=== PATIENT | female | born 1980 | race African-American/Black ===

== ENCOUNTER 2016-08-08 03:39 | Emergency (ER) | payer OTHER ==
--- NOTE | ~2016-08-08 | CT4 ---
[facility] A Service [facility] RADIOLOGY TEXT RESULTS PATIENT: PEREZ NUGENT LOCATION: [facility] : 82 UNIT #: [id number] AGE: [address]: Sonal Resendiz MD SEX: F ORDER DR: [id number] [address] [address] [id number] MR#: [id number] Acc #: [id number] NAME: PEREZ NUGENT : 1980 SEX: F STUDY DATE/TIME: 08/08/2016 6:14 UNIT: [facility] ROOM: STUDY DESCRIPTION: CT Abd and Pelv Wo Cont Attending Physician: Sonal Resendiz M.D. Ordering Physician: Kalia Dooley M.D. Primary Care Physician: Primary Care Physician No MEDICAL IMAGING REPORT This report is preliminary unless electronic signature is present EXAM CT abdomen and pelvis without contrast INDICATION Low abdomen pain since yesterday morning. COMPARISON None. TECHNIQUE Axial 3 mm images were obtained through the abdomen and pelvis without IV or oral contrast. This CT examination was performed with one or more of the following radiation dose reduction techniques: automatic exposure control, adjustment of mA and/or kV according to patient size, and iterative reconstruction. FINDINGS The lung bases are clear. The gallbladder is contracted but otherwise normal. The liver, spleen, pancreas, adrenal glands and kidneys are normal in appearance. There is no hydronephrosis. The aorta is normal in size. The bowel including the appendix appears normal. The uterus, adnexal regions and bladder are normal. The bones are unremarkable. The vagina appears normal without foreign body. IMPRESSION Normal unenhanced CT scan of the abdomen and pelvis. Dictated by... [facility] A Service [facility] RADIOLOGY TEXT RESULTS PATIENT: PEREZ NUGENT LOCATION: [facility] : 82 UNIT #: [id number] AGE: [address]: Sonal Resendiz MD SEX: F ORDER DR: Dexter Lofton M.D. THIS IS AN ELECTRONICALLY VERIFIED REPORT Dexter Lofton M.D. at 08/08/2016 2:19 PM CRYSTAL/shauna TD: 08/08/2016 11:08 JOB #: [id number] MEDICAL IMAGING REPORT Page 1 of 1 COPY
[~2016-08-08 03:39] MED LIST: BACTRIM DS TABL1 TA1 PO; METFORMIN PO; TYLENOL #3 PO
[2016-08-08 05:11] LABS: URINE SOURCE CLEAN CATCH
[2016-08-08 05:24] LABS: URINE APPEARANCE CLEAR; URINE BILIRUBIN NEG (NEG); URINE BLOOD TRACE (NEG); URINE COLOR YELLOW; URINE GLUCOSE NEG (NEG); URINE KETONE NEG (NEG); URINE LEUKOCYTE ESTERASE 1+ (NEG); URINE NITRATE NEG (NEG); URINE PH 6.5 (5-8); URINE PROTEIN NEG (NEG); URINE SPECIFIC GRAVITY 1.019 (1.003-1.035); URINE UROBILINOGEN 0.2 MG/DL (NEG)
[2016-08-08 05:27] LABS: CULTURE INDICATED? YES; URBCS1 AUWI 0-2 /[HPF] (0-2); URINE BACTERIA AUWI NEG (NEGATIVE)
[2016-08-08 05:39] LABS: URINE CRYSTALS CALCIUM OXALATE /[HPF]; URINE SQUAMOUS EPITHELIAL CELL OCCAS /[HPF]
[2016-08-08 05:40] LABS: URINE MUCUS PRESENT
[2016-08-10 02:18] LABS: CHLAMYDIA TRACH Not Detected (Not Detected); N GONOR Not Detected (Not Detected)
== END 2016-08-08 07:32 | disposition home or self-care (01) ==
LOC: CED 03:39
PROVIDERS: Emergency Medicine
DX: A59.01 Trichomonal vulvovaginitis (principal); A64 Unspecified sexually transmitted disease
CPT/HCPCS: 74176; 81003; 84703; 87086; 87491; 87591; 87808; 87905; 96372; 99284; J1885

== ENCOUNTER 2016-09-02 23:14 | Emergency (ER) | payer OTHER ==
--- NOTE | ~2016-09-02 | CT4 ---
[facility] A Service [facility] RADIOLOGY TEXT RESULTS PATIENT: PEREZ NUGENT LOCATION: SED : 82 UNIT #: [id number] AGE: [address]: Sebas Rondon MD SEX: F ORDER DR: [id number] [address] [address] [id number] E MR#: [id number] Acc #: [id number] NAME: PEREZ NUGENT : 1980 SEX: F STUDY DATE/TIME: 09/03/2016 2:19 UNIT: SED ROOM: STUDY DESCRIPTION: CT Abd and Pelv Wo Cont Attending Physician: Sebas Rondon M.D. Ordering Physician: Yue Oneill Primary Care Physician: Primary Care Physician No MEDICAL IMAGING REPORT This report is preliminary unless electronic signature is present. EXAM CT abdomen and pelvis without contrast INDICATION Abdominal pain for 3 days. COMPARISON 08/08/2016. TECHNIQUE Axial 5 mm images were obtained through the abdomen and pelvis without IV or oral contrast. Sagittal and coronal reconstructions were generated. This CT examination was performed with one or more of the following radiation dose reduction techniques: automatic exposure control, adjustment of mA and/or kV according to patient size, and iterative reconstruction. FINDINGS Lung bases are clear. The liver, gallbladder, spleen, pancreas, and adrenal glands are normal. The left kidney is normal. There is mild perinephric edema around the right kidney. No stones are identified. There is no hydronephrosis. The bowel including the appendix is normal. The uterus, adnexal regions and bladder are normal. Bones are unremarkable. IMPRESSION There is mild perinephric stranding around the right kidney. There are no urinary stones or obstruction identified. The findings may represent pyelonephritis and correlation with urinalysis is recommended. Otherwise, the study is normal. [facility] A Service [facility] RADIOLOGY TEXT RESULTS PATIENT: PEREZ NUGENT LOCATION: SED : 82 UNIT #: [id number] AGE: [address]: Sebas Rondon MD SEX: F ORDER DR: Dictated by... Dexter Lofton M.D. THIS IS AN ELECTRONICALLY VERIFIED REPORT Dexter Lofton M.D. at 09/03/2016 1:31 PM CRYSTAL/shauna TD: 09/03/2016 09:39 JOB #: [id number] MEDICAL IMAGING REPORT Page 1 of 1
[2016-09-02] MEDS ORDERED: BENZONATATE200 M1 (23:32)
[2016-09-02] MEDS ORDERED: SULFAMETHOXAZO1 EACH (23:33)
[2016-09-03 01:02] LABS: BASOPHIL% 0.2 % (0-2.5); DIFF IND NO; EOSINOPHIL# 0.1 X10e3 (0-0.7); EOSINOPHIL% 0.4 % (0.0-7.0); HEMATOCRIT 38.9 % (35.0-45.0); HEMOGLOBIN 13.1 gm/dL (12.0-16.0); LYMPHOCYTE# 2.3 X10e3 (1.0-3.5); LYMPHOCYTE% 13.1 % (17.0-45.0); MEAN CELL VOLUME 83.4 FL (83-96); MEAN CORPUSCULAR HEMOGLOBIN 28.1 PG (28-34); MEAN CORPUSCULAR HGB CONC 33.7 g/dL (30-36); MEAN PLATELET VOLUME 7.8 FL (6.5-11.5); MONOCYTE% 11.4 % (3.0-12.0); NEUTROPHIL# 13.5 X10e3 (1.5-7.1); NEUTROPHIL% 74.9 % (40-75); PLATELET COUNT 264 X10e3 (140-420); RED BLOOD COUNT 4.66 X10e (3.90-5.30); RED CELL DISTRIBUTION WIDTH 14.1 % (11.0-15.5)
[2016-09-03 01:27] LABS: ALBUMIN SERUM 3.5 g/dL (3.5-5.0); BILIRUBIN,TOTAL 0.7 mg/dL (0.2-2.0); BUN/CREATININE RATIO 12.5; CALCIUM SERUM 9.1 mg/dL (8.4-10.2); CREATININE SERUM 0.8 mg/dL (0.6-1.4); GLOM FILT RATE Estimated 111.6 mL/min (>60); PROTEIN TOTAL SERUM 7.5 g/dL (6.0-8.3)
[2016-09-03 01:28] LABS: POTASSIUM 2.8 mmol/L (3.5-5.1)
[2016-09-03 01:57] LABS: URINE SOURCE CLEAN CATCH
[2016-09-03 01:59] LABS: URINE APPEARANCE HAZY; URINE BLOOD 3+ (NEG); URINE COLOR DK YELLOW; URINE KETONE 1+ (NEG); URINE NITRATE POS (NEG); URINE PROTEIN 2+ (NEG); URINE SPECIFIC GRAVITY 1.025 (1.003-1.035)
[2016-09-03 02:05] LABS: MICRO INDICATED? YES; URINE BILIRUBIN NEG (NEG); URINE GLUCOSE NEG (NORM); URINE LEUKOCYTE ESTERASE 2+ (NEG)
[2016-09-03 02:06] LABS: CULTURE INDICATED? YES; URINE BACTERIA 1+ (NEG); URINE RBC INNUM /[HPF] (0-2); URINE SQUAMOUS EPITHELIAL CELL MODERATE /[HPF]; URINE WBC 200-300 /[HPF] (0-5)
[2016-09-03 02:07] LABS: URINE MUCUS PRESENT; URINE TRANSITIONAL EPI CELLS FEW /[HPF]
[2016-09-03] MEDS ORDERED: VICODIN (04:24)
[2016-09-03] MEDS ORDERED: K-DUR20 ME1 (04:24)
[2016-09-03] MEDS ORDERED: OMNICEF (04:24)
[2016-09-03] MEDS ORDERED: ZOFRAN (04:24)
== END 2016-09-03 04:24 | disposition home or self-care (01) ==
LOC: SED 23:14
PROVIDERS: Physician Assistant
DX: N10 Acute pyelonephritis (principal); E87.6 Hypokalemia; Z98.890 Other specified postprocedural states; Z88.0 Allergy status to penicillin; Z88.8 Allergy status to other drugs, medicaments and biological substances
CPT/HCPCS: 36415; 74176; 80053; 81003; 84703; 85025; 87086; 87088; 87186; 96361; 96365; 96374; 96375; 99284; J0696; J2405